=== PATIENT | male | born 1950 | race Caucasian/White ===

== ENCOUNTER 2017-03-09 15:41 | Observation (INO) | payer MEDICARE, OTHER ==
[~2017-03-09] VITALS: Ht 180.3 cm; Wt 104.9 kg
[2017-03-09] MEDS ORDERED: PRINIVIL (ZESTR20 MG PO (16:59)
[2017-03-09] MEDS ORDERED: PROTONIX40 MG PO (16:59)
[2017-03-09] MEDS ORDERED: ALFUZOSIN HCL E10 MG PO (16:59)
[2017-03-09] MEDS ORDERED: SULINDAC150 MG PO (16:59)
[2017-03-09] MEDS ORDERED: PRAVACHOL20 MG PO (17:00)
[2017-03-09] MEDS ORDERED: FISH OIL 1,0001 EAC1 PO (17:01)
[2017-03-09] MEDS ORDERED: CENTRUM SILVER1 TAB PO (17:01)
[2017-03-09] MEDS ORDERED: CITRACAL+D(315M1 TAB PO (17:01)
[2017-03-09] MEDS ORDERED: VITAMIN C1000 MG PO (17:01)
[2017-03-09] MEDS ORDERED: TRUBIOTICS PO (17:02)
[2017-03-09] MEDS ORDERED: BETAMETHAS45 GM/TUBE TOP (17:03)
[2017-03-09] MEDS ORDERED: TRIAMCINOLONE A15 G2 TOP (17:03)
[2017-03-09] MEDS ORDERED: VOLTAREN 1% GE100 GM TOP (17:04)
[2017-03-09] MEDS ORDERED: FLUOCINONIDE TOP (17:04)
--- NOTE | 2017-03-09 19:28 | NUR ---
PATIENT ADMITTED DIRECT ADMIT FROM [facility] BY . FOR NUMBNESS/TINGLING AND WEAKNESS. PER PATIENT STARTING FRIDAY NIGHT STARTED EXPERIENCING NEW NUMBNESS/TINGLING TO NBILATERAL FEET AND SOME TO HANDS, SINCE THEN HAS NOTED DECREASED SENSTATION TO SKIN OF BLE, AND TO LIPS. 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 PATIENT ALERT AND ORIENTED X3. VSS. SPEECH CLEAR AND APPROPRIATE. HISTORY OF "SIGNS OF BARRETTS SYNDROME", ANKLE AND SINUS SURGERIES, HTN. PATIENT PLEASANT AND COOPERATIVE WITH CARES. PLAN FOR MRI OF HEAD AND BACK TONIGHT. FOLLOW UP CONTINUE TO MONITOR NUMBNESS/TINGLING
[2017-03-09 21:50] LABS: CREATININE 1.2 mg/dL (0.6-1.3)
[2017-03-09 21:55] LABS: ESTIMATED GFR (MDRD EQUATION) > 60
--- NOTE | 2017-03-10 04:40 | NUR ---
Significant Event:Patient with complaints of numbness and tingling to bilateral feet and hands. Tylenol and gabapentin ordered and given at HS and this was helpful and patient does state there is less numbness and tingling. Was scheduled for an MRI last night but it was rescheduled for this morning. Alert and orientated, plesant and cooperative with cares. Follow up:MRI this am.
[2017-03-10] MEDS ORDERED: TYLENOL EXTRA500 MG PO (10:06)
[2017-03-10] MEDS ORDERED: NEURONTIN300 MG PO (10:09)
--- NOTE | 2017-03-10 11:25 | NUR ---
Introduced self/role to patients. He denied any barriers to going home or at home. No DME needed. Will be going home today, discharge paperwork is complete.
--- NOTE | 2017-03-10 11:52 | NUR ---
DISCHARGE: D: DISCHARGE ORDERS WERE RECEIVED FOR THE PATIENT TO BE DISCHARED TO HOME TODAY. I: THE DISMISSAL INSTRUCTIONS WERE PREPARED AND REVIEWED WITH PATIENT VIRTUALLY. THE FOLLOWING INFORMATION WAS DISCUSSED INCLUDING [employer] TEACHING SHEETS PROVIDED: WHAT IS PERIPHERAL NEUROPATHY, TREATING PERIPHERAL NEUROPATHY, KEEPING FEET HEALTHY, CERVICAL DISK PROBLEMS, COMMON SPINE AND NECK PROBLEMS, ANATOMY OF NORMAL SPINE, HOW YOUR BACK WORKS, PREVENTING DVT, GABAPENTIN AND TYLENOL. R: THE PATIENT VERBALIZED UNDERSTANDING OF THE DISMISSAL EDUCATION AT THE TIME OF TEACHING WITH NO FURTHER QUESTIONS. P: THE ABOVE INFORMATION WAS SHARED WITH THE PRIMARY NURSE AND THE CHARGE NURSE THAT THE PATIENT EDUCATION WAS COMPLETED. THE PATIENT IS READY FOR DISCHARGE TO HOME WHEN GETS HERE.
== END 2017-03-10 13:33 | disposition disaster alternative care site (69) ==
LOC: GMSU 15:41
PROVIDERS: ADMIT Family Medicine
DX: G62.9 Polyneuropathy, unspecified (principal); K21.9 Gastro-esophageal reflux disease without esophagitis; I10 Essential (primary) hypertension; E78.5 Hyperlipidemia, unspecified; E66.9 Obesity, unspecified; Z87.891 Personal history of nicotine dependence
CPT/HCPCS: A9577; G0378; G0379

== ENCOUNTER → 2017-04-07 | Outpatient (CLI) | payer MEDICARE, OTHER ==
[~2017-04-07] MED LIST: ALFUZOSIN HCL E10 MG PO; BETAMETHAS45 GM/TUBE TOP; CENTRUM SILVER1 TAB PO; CITRACAL+D(315M1 TAB PO; FISH OIL 1,0001 EAC1 PO; FLUOCINONIDE TOP; NEURONTIN300 MG PO; PRAVACHOL20 MG PO; PRINIVIL (ZESTR20 MG PO; PROTONIX40 MG PO; SULINDAC150 MG PO; TRIAMCINOLONE A15 G2 TOP; TRUBIOTICS PO; TYLENOL EXTRA500 MG PO; VITAMIN C1000 MG PO; VOLTAREN 1% GE100 GM TOP
== END ==
LOC: LHSC 12:09
DX: K22.70 Barrett's esophagus without dysplasia (principal); Z86.010 Personal history of colon polyps